=== PATIENT | female | born 1980 | race Caucasian/White ===

== ENCOUNTER 2016-07-03 10:10 | Emergency (ER) | payer OTHER, MEDICAID ==
[~2016-07-03] VITALS: Ht 165.1 cm; Wt 136.1 kg
[2016-07-03] MEDS ORDERED: LYRICA25 MG PO (18:11)
[2016-07-03] MEDS ORDERED: ZANAFLEX2 MG PO (18:14)
== END 2016-07-03 13:38 | disposition short-term general hospital (02) ==
LOC: ER 10:10
DX: N39.0 Urinary tract infection, site not specified (principal); T14.8 Other injury of unspecified body region; X58.XXXA Exposure to other specified factors, initial encounter
CPT/HCPCS: J1885; Q9963; Q9967